=== PATIENT | female | born 1985 | race Caucasian/White ===

== ENCOUNTER 2021-05-21 21:33 | Inpatient (IN) ==
[2021-05-21] MEDS ORDERED: FAMOTIDINE 20MG/5ML IV PUSH IV STA (22:22)
[2021-05-21] MEDS ORDERED: SODIUM CHLORIDE 0.9% 1000ML 1,000 ML IV ONE (22:22)
[2021-05-21] MEDS ORDERED: PANTOprazole 40 MG TAB PO STA (22:22)
[2021-05-21] MEDS ORDERED: ALBUTEROL HFA 8 GM INHALER INH ONE (22:22)
[2021-05-21] MEDS ORDERED: ONDANSETRON INJ 2 MG/ML 2 ML VIAL IV STA (22:22)
--- NOTE | 2021-05-21 22:28 | Emergency Department Note ---
Impression & Plan Pneumonia, Hematemesis, Epigastric abdominal pain, Leukopenia, Thrombocytopenia, COVID-19 ED Provider Note NAME: ARMIN NIEVES AGE: 35 SEX: F : 1985 ARRIVES VIA: Walk-In INFORMANT: [Patient] ED PROVIDER(S): [Bipin Santamaria MD] CHIEF COMPLAINT: Dehydration HISTORY OF PRESENT ILLNESS: The patient is a 35-year-old female who presents with what she thinks is dehydration. The patient states that 6 days ago, she developed a headache. A few days ago, she developed a fever and then she lost her taste and smell. She has had no appetite and she has been quite nauseated. There has been some vomiting. The patient went to her doctor's office and tested positive for COVID-19. She is not vaccinated. The patient cannot remember the last time she urinated. She states that she thinks she is dehydrated. She has not noticed any respiratory difficulty other than a slight cough. There is no sore throat. The patient states that she has been alternating with Motrin and Tylenol and she thinks this may have upset her stomach even more. Of note, prior to my arrival in the room, the patient had an episode of vomiting and noted blood in the vomitus. REVIEW OF SYSTEMS: See HPI for pertinent positives and negatives. A total of ten systems were reviewed and were otherwise negative. PMHx/PSHx: See Below SOCIAL HISTORY: See Below. PHYSICAL EXAM: GENERAL: Patient is in no acute distress. HEENT: No acute trauma, normocephalic atraumatic, mucous membranes moist, no nasal congestion, no scleral icterus. No throat erythema or exudate. NECK: No stridor, no adenopathy, no meningismus, trachea is midline. LUNGS: Clear to auscultation bilaterally, no wheeze, no rhonchi, breath sounds equal. HEART: Without murmurs gallops or rubs, regular rate and rhythm. ABDOMEN: Soft, mildly tender in the epigastrium, bowel sounds positive, no hernias, no peritonitis. EXTREMITIES: No cyanosis or edema, full range of motion of all the joints without pain or difficulty, no signs for acute trauma. NEUROLOGIC: Oriented x 3, no acute motor or sensory deficits, no focal weakness. SKIN: No rash, no jaundice, no diaphoresis. DIFFERENTIAL DIAGNOSIS: Dehydration, pneumonia, COVID-19, ulcer, gastritis, viral illness, bowel obstruction, pneumonia, among others. EMERGENCY DEPARTMENT COURSE/PROCEDURES: MEDICAL DECISION MAKING: Patient has a lower white blood cell count, oftentimes noted with a viral infection. Her hemoglobin was normal. Platelet count was low at ninety-three. There was no kidney failure. Magnesium was low at 1.7. Lactic acid level was not elevated making sepsis less likely. There is no worrisome liver enzyme elevation. Anaplasmosis smear returned negative. Lyme disease testing is currently pending. Chest film shows a left mid lung pneumonia. As per [facility], her Covid test is positive. The patient received IV saline, 1.5 L. She was given IV Zofran, IV Pepcid and oral Protonix. She received IV morphine for her abdominal pain. She was given IV magnesium for the lower magnesium value. She was given albuterol via MDI. She received a dose of IV ceftriaxone. The ceftriaxone was for the pneumonia findings. The patient presents with a positive Covid test as an outpatient. She has a low white blood cell count, a low platelet count. She had a bout of hematemesis here at our hospital prior to my arrival in the room. Her magnesium is low. She has abdominal pain/cramping. She is dehydrated. The patient is in need of a hospital stay for further work-up. I spoke with her and case management director. The on-call hospitalist was consulted. Past Med/Surg History Medical History (Updated 05/22/21 @ 01:13 by Bipin Santamaria MD) No pertinent past medical history Surgical History No pertinent past surgical history Family History Grandmother Myocardial infarction Social History Smoking Status: Never smoker Feels Safe at Home: Yes Allergies Allergies Allergy/AdvReac Type Severity Reaction Status Date / Time No Known Allergies Allergy Unknown Verified 05/21/21 23:40 Home Meds Home Medications Medication Instructions Recorded Confirmed No Known Home Medications 03/09/21 05/21/21 Results & Data (ED) Vital Signs Vital Signs - 24 hr 05/21/21 21:41 Temperature 37 C Temperature Source Temporal Artery Scan Pulse Rate 76 Respiratory Rate 20 Blood Pressure 123/77 Blood Pressure Mean 92 Pulse Oximetry 99 Oxygen Delivery Method Room Air Sepsis Recent Fever Within 48 Hours No Sepsis New/Unexplained Change in Mental Status N/A Sepsis Action Taken by Nursing No Action Required Home Medications Current Medication List: was personally reviewed by me Laboratory Data Attestation: I reviewed the patient's lab results. Result diagrams: 05/21/21 22:36 05/21/21 22:36 Lab Results 05/21/21 05/21/21 05/21/21 Range/Units 22:36 22:36 23:57 WBC 1.79 L (4.8-10.8) K/uL RBC 4.26 (4.2-5.4) M/uL Hgb 12.3 (12.0-16.0) g/dL Hct 36.4 L (37-47) % MCV 85.4 (80-100) fL MCH 28.9 (25-34) pg MCHC 33.8 (32-36) g/dL RDW Std Deviation 37.6 (36.4-46.3) fL RDW Coeff of Oziel 12.1 (11.5-14.5) % Plt Count 93 L (130-400) K/uL MPV 11.2 H (7.4-10.4) fL Immature Gran % (Auto) 0.6 % Neut % (Auto) 74.8 % Lymph % (Auto) 19.0 % [place] % (Auto) 5.6 % Eos % (Auto) 0.0 % Baso % (Auto) 0.0 % Neut # (Auto) 1.34 L (1.4-6.5) K/uL Lymph # (Auto) 0.34 L (1.2-3.4) K/uL [place] # (Auto) 0.10 L (0.11-0.59) K/uL Eos # (Auto) 0.00 (0-0.5) K/uL Baso # (Auto) 0.00 (0-0.2) K/uL Immature Gran # (Auto) 0.01 (0.00-0.02) K/uL Platelet Estimate Decreased L (Normal) RBC Morphology Unremarkable Sodium 139 (136-145) mmol/L Potassium 3.5 (3.5-5.1) mmol/L Chloride 107 (98-107) mmol/L Carbon Dioxide 29 (21-32) mmol/L Anion Gap 3.0 (3-11) BUN 16 (7-18) mg/dl Creatinine 0.69 (0.6-1.2) mg/dl Est Cr Clr Drug Dosing 114.5 ml/min Est GFR ( Amer) 128.9 ml/min Est GFR (Non-Af Amer) 111.2 ml/min BUN/Creatinine Ratio 22.9 H (10-20) Glucose 108 H (70-99) mg/dl Lactate 1.0 (0.4-2.0) mmol/L Calcium 8.1 L (8.5-10.1) mg/dl Magnesium 1.7 L (1.8-2.4) mg/dl Total Bilirubin 0.4 (0.2-1) mg/dl Direct Bilirubin 0.1 (0-0.2) mg/dl AST 30 (15-37) U/L ALT 21 (12-78) U/L Alkaline Phosphatase 30 L (45-117) U/L Total Protein 6.1 L (6.4-8.2) gm/dl Albumin 3.2 L (3.4-5.0) gm/dl Anaplasma Smear See Comment COVID-19 Eval Order 05/22/21 Range/Units 00:46 WBC (4.8-10.8) K/uL RBC (4.2-5.4) M/uL Hgb (12.0-16.0) g/dL Hct (37-47) % MCV (80-100) fL MCH (25-34) pg MCHC (32-36) g/dL RDW Std Deviation (36.4-46.3) fL RDW Coeff of Oziel (11.5-14.5) % Plt Count (130-400) K/uL MPV (7.4-10.4) fL Immature Gran % (Auto) % Neut % (Auto) % Lymph % (Auto) % [place] % (Auto) % Eos % (Auto) % Baso % (Auto) % Neut # (Auto) (1.4-6.5) K/uL Lymph # (Auto) (1.2-3.4) K/uL [place] # (Auto) (0.11-0.59) K/uL Eos # (Auto) (0-0.5) K/uL Baso # (Auto) (0-0.2) K/uL Immature Gran # (Auto) (0.00-0.02) K/uL Platelet Estimate (Normal) RBC Morphology Sodium (136-145) mmol/L Potassium (3.5-5.1) mmol/L Chloride (98-107) mmol/L Carbon Dioxide (21-32) mmol/L Anion Gap (3-11) BUN (7-18) mg/dl Creatinine (0.6-1.2) mg/dl Est Cr Clr Drug Dosing ml/min Est GFR ( Amer) ml/min Est GFR (Non-Af Amer) ml/min BUN/Creatinine Ratio (10-20) Glucose (70-99) mg/dl Lactate (0.4-2.0) mmol/L Calcium (8.5-10.1) mg/dl Magnesium (1.8-2.4) mg/dl Total Bilirubin (0.2-1) mg/dl Direct Bilirubin (0-0.2) mg/dl AST (15-37) U/L ALT (12-78) U/L Alkaline Phosphatase (45-117) U/L Total Protein (6.4-8.2) gm/dl Albumin (3.4-5.0) gm/dl Anaplasma Smear COVID-19 Eval Order Covid19 at [facility] Administered Medications Magnesium Sulfate/Dextrose (Magnesium Sulfate / D5w) 1 gm in 100 mls @ 100 mls/hr IV NOW STA Stop: 05/22/21 01:13 Last Admin: 05/22/21 00:25 Dose: 100 mls/hr Documented by: [id number] Discontinued Medications Albuterol (Albuterol Hfa 8 Gm Inhaler) 2 puffs INH NOW ONE Stop: 05/21/21 22:23 Last Admin: 05/21/21 22:38 Dose: 2 puffs Documented by: [id number] Famotidine (Famotidine 20mg/5ml Iv Push) 20 mg IV ONE STA Stop: 05/21/21 22:23 Last Admin: 05/21/21 22:38 Dose: 20 mg Documented by: [id number] Sodium Chloride (Nss 1000ml) 1,000 mls @ 999 mls/hr IV .Q1H1M ONE Stop: 05/21/21 23:22 Last Infusion: 05/22/21 00:01 Dose: 0 mls/hr Documented by: [id number] Admin: 05/21/21 22:38 Dose: 999 mls/hr Documented by: [id number] Ceftriaxone Sodium (Rocephin) 1,000 mg in 50 mls @ 100 mls/hr IV NOW STA Stop: 05/22/21 00:05 Last Admin: 05/22/21 00:25 Dose: 100 mls/hr Documented by: [id number] Sodium Chloride (Nss 1000ml) 500 mls @ 999 mls/hr IV .Q31M ONE Stop: 05/22/21 00:17 Last Admin: 05/22/21 00:26 Dose: 999 mls/hr Documented by: [id number] Morphine Sulfate (Morphine Sulfate 4 Mg/Ml 1 Ml Carp\Vial) 4 mg IV NOW STA Stop: 05/22/21 00:13 Last Admin: 05/22/21 00:25 Dose: 4 mg Documented by: [id number] Ondansetron HCl (Ondansetron Inj 2 Mg/Ml 2 Ml Vial) 4 mg IV NOW STA Stop: 05/21/21 22:23 Last Admin: 05/21/21 22:38 Dose: 4 mg Documented by: [id number] Pantoprazole Sodium (Pantoprazole 40 Mg Tab) 40 mg PO NOW STA Stop: 05/21/21 22:23 Last Admin: 05/21/21 22:38 Dose: 40 mg Documented by: [id number] Imaging Data Attestation: I personally reviewed and interpreted this imaging study as follows: My Impression: Chest x-ray: There is a mid left lung pneumonia. There is no pneumothorax or CHF. Discharge Plan Visit Data Chief Complaint: Dehydration Stated Complaint: COVID POSITIVE, VOMITING DEHYDRATED ED Provider: Bipin Santamaria Discharge Problem: Pneumonia, Hematemesis, Epigastric abdominal pain, Leukopenia, Th rombocytopenia, COVID-19 Patient Disposition: Admitted As Inpatient Condition: Fair Forms Stand Alone Forms: My [facility] Prescriptions Prescriptions: No Action No Known Home Medications RF: 0 Referrals Referrals: PCP,NO [Primary Care Provider] -
[2021-05-21 22:57] LABS: Hematocrit (blood only) 36.4 % (37-47); Hemoglobin 12.3 g/dL (12.0-16.0); Mean Corpuscular Hemoglobin 28.9 pg (25-34); Mean Corpuscular Hgb Conc 33.8 g/dL (32-36); Mean Corpuscular Volume 85.4 fL (80-100); RDW Coefficient of Variation 12.1 % (11.5-14.5); RDW Standard Deviation 37.6 fL (36.4-46.3); Red Blood Count 4.26 M/uL (4.2-5.4); White Blood Count 1.79 K/uL (4.8-10.8)
[2021-05-21 23:16] LABS: BUN Creatinine Ratio 22.9 (10-20); Calcium 8.1 mg/dl (8.5-10.1); Creatinine Clr Calc Pharmacy 114.5 ml/min; Est GFR (African American) 128.9 ml/min; Est GFR (Non-African American) 111.2 ml/min; Potassium 3.5 mmol/L (3.5-5.1)
[2021-05-21 23:20] LABS: Mean Platelet Volume 11.2 fL (7.4-10.4); Platelet Count 93 K/uL (130-400)
[2021-05-21 23:21] LABS: Immature Granulocytes # (auto) 0.01 K/uL (0.00-0.02); Immature Granulocytes % (auto) 0.6 %; Lymphocytes # (auto) 0.34 K/uL (1.2-3.4); Monocytes % (auto) 5.6 %; Neutrophils # (auto) 1.34 K/uL (1.4-6.5); Neutrophils % (auto) 74.8 %; Platelet Estimate Decreased (Normal); RBC Morphology Unremarkable
[2021-05-21] MEDS ORDERED: cefTRIAXone SODIUM 1,000 MG/50 ML BAG IV STA (23:36)
[2021-05-21] MEDS ORDERED: SODIUM CHLORIDE 0.9% 1000ML 500 ML IV ONE (23:47)
[2021-05-22 00:08] LABS: Magnesium 1.7 mg/dl (1.8-2.4)
[2021-05-22 00:11] LABS: Albumin Level 3.2 gm/dl (3.4-5.0); Bilirubin Direct 0.1 mg/dl (0-0.2); Bilirubin,Total 0.4 mg/dl (0.2-1); Total Protein 6.1 gm/dl (6.4-8.2)
[2021-05-22] MEDS ORDERED: MoRPHine SULFATE 4 MG/ML 1 ML CARP\\VIAL IV STA (00:12)
[2021-05-22] MEDS ORDERED: MAGNESIUM SULFATE / D5W 1 GM/100 ML BAG IV STA (00:14)
[2021-05-22 01:15] LABS: Lyme Ab IgG w/WB Rflx Negative (Negative); Lyme Ab IgM w/WB Rflx Negative (Negative)
[2021-05-22 01:27] LABS: Thyroid Stimulating Hormone 0.998 uIu/ml (0.300-4.500)
--- NOTE | 2021-05-22 01:42 | History & Physical Report ---
Date of Service May 22, 2021 Assessment & Plan (1) Pneumonia due to COVID-19 virus: Plan: Atypical pneumonia on initial read UGI B Differentials include MW T, NSAID gastritis Patient currently hemodynamically stable. New onset thrombocytopenia, leukopenia secondary to viral illness GMF Doxycycline for atypical pneumonia IV PPI Serial H&H, transfuse PRBC if hemoglobin less than 7 and or for symptomatic anemia GI consult if with progressive GI bleed Peripheral blood smear for thrombocytopenia and leukopenia DVT prophylaxis. SCDs Re: Thrombocytopenia Full code Text document was generated using [employer] voice recognition software. It may contain grammatical or spelling errors. Kindly contact undersigned for clarification of any documentation item in question. History of Present Illness Chief Complaint: Dehydration, abdominal pain, hematemesis, COVID-19 Primary Care Provider: [facility] Practice History obtained from patient and records. No significant medical history. Last week, patient noted achy headache symptoms later followed by loss of taste and smell, fever, chills, body aches, dry cough. Not sure about COVID-19 contacts as patient had attended the [employer] with her family. Patient seen at PCPs office 2 days ago. COVID-19 test was positive. Patient has not received the COVID-19 vaccine. Patient advised to isolate and drink plenty of fluids. Patient alternating Tylenol and NSAIDs for body aches. Patient started feeling worse yesterday morning. Persistent headache symptoms later associated with achy abdominal pain, nausea, hematemesis. Possible diarrhea as per patient. Poor appetite. Patient feels dehydrated. No chest pain, no S OB. Persistent dry cough symptoms. Patient consulted ER for evaluation. Ceftriaxone and Protonix administered at the ER. 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 Allergies Allergy/AdvReac Type Severity Reaction Status Date / Time No Known Allergies Allergy Unknown Verified 05/21/21 23:40 Home Medications Medication Instructions Recorded Confirmed Type No Known Home Medications 03/09/21 05/21/21 History Past Med/Surg History Medical History (Updated 05/22/21 @ 09:00 by Olegario Meeks MD) No pertinent past medical history Surgical History No pertinent past surgical history Family History Grandmother Myocardial infarction Social History Smoking Status: Never smoker Hx Alcohol Use: No Hx Substance Use: No Preferred Language: Albanian Communication Ability: Effective Beliefs That Will Affect Care: None Current Living Situation: Spouse Feels Safe at Home: Yes Assistive Devices: None Review of Systems Review of Systems: As per HPI, all 10 systems reviewed, all other ROS negative Physical Exam Physical Exam: GENERAL: uncomfortable, no respiratory distress SKIN: Normal color, warm HEENT: [place] palpebral conjunctivae, no ptosis, dry buccal mucosa NECK : Supple, no tenderness CHEST : Crackles over left lung, no tenderness HEART : RRR, no obvious murmurs ABDOMEN: Some distention, epigastric tenderness EXTREMITIES : No LE swelling/tenderness, no other conspicuous deformities noted NEUROLOGIC : Coherent, no facial asymmetry, no other gross focality Results & Data Results & Data ([facility]) Vital Signs (Past 12 Hours) Vital Signs Temp Pulse Resp BP Pulse Ox 05/21/21 21:41 37 C 76 20 123/77 99 Laboratory Results Laboratory Results WBC 1.79 K/uL (4.8-10.8) L 05/21/21 22:36 RBC 4.26 M/uL (4.2-5.4) 05/21/21 22:36 Hgb 12.3 g/dL (12.0-16.0) 05/21/21 22:36 Hct 36.4 % (37-47) L 05/21/21 22:36 MCV 85.4 fL (80-100) 05/21/21 22:36 MCH 28.9 pg (25-34) 05/21/21 22:36 MCHC 33.8 g/dL (32-36) 05/21/21 22:36 RDW Std Deviation 37.6 fL (36.4-46.3) 05/21/21 22:36 RDW Coeff of Oziel 12.1 % (11.5-14.5) 05/21/21 22:36 Plt Count 93 K/uL (130-400) L 05/21/21 22:36 MPV 11.2 fL (7.4-10.4) H 05/21/21 22:36 Immature Gran % (Auto) 0.6 % 05/21/21 22:36 Neut % (Auto) 74.8 % 05/21/21 22:36 Lymph % (Auto) 19.0 % 05/21/21 22:36 Carter % (Auto) 5.6 % 05/21/21 22:36 Eos % (Auto) 0.0 % 05/21/21 22:36 Baso % (Auto) 0.0 % 05/21/21 22:36 Neut # (Auto) 1.34 K/uL (1.4-6.5) L 05/21/21 22:36 Lymph # (Auto) 0.34 K/uL (1.2-3.4) L 05/21/21 22:36 Carter # (Auto) 0.10 K/uL (0.11-0.59) L 05/21/21 22:36 Eos # (Auto) 0.00 K/uL (0-0.5) 05/21/21 22:36 Baso # (Auto) 0.00 K/uL (0-0.2) 05/21/21 22:36 Immature Gran # (Auto) 0.01 K/uL (0.00-0.02) 05/21/21 22:36 Platelet Estimate Decreased (Normal) L 05/21/21 22:36 RBC Morphology Unremarkable 05/21/21 22:36 Sodium 139 mmol/L (136-145) 05/21/21 22:36 Potassium 3.5 mmol/L (3.5-5.1) 05/21/21 22:36 Chloride 107 mmol/L (98-107) 05/21/21 22:36 Carbon Dioxide 29 mmol/L (21-32) 05/21/21 22:36 Anion Gap 3.0 (3-11) 05/21/21 22:36 BUN 16 mg/dl (7-18) 05/21/21 22:36 Creatinine 0.69 mg/dl (0.6-1.2) 05/21/21 22:36 Est Cr Clr Drug Dosing 114.5 ml/min 05/21/21 22:36 Est GFR ( Amer) 128.9 ml/min 05/21/21 22:36 Est GFR (Non-Af Amer) 111.2 ml/min 05/21/21 22:36 BUN/Creatinine Ratio 22.9 (10-20) H 05/21/21 22:36 Glucose 108 mg/dl (70-99) H 05/21/21 22:36 Lactate 1.0 mmol/L (0.4-2.0) 05/21/21 23:57 Calcium 8.1 mg/dl (8.5-10.1) L 05/21/21 22:36 Magnesium 1.7 mg/dl (1.8-2.4) L 05/21/21 22:36 Total Bilirubin 0.4 mg/dl (0.2-1) 05/21/21 22:36 Direct Bilirubin 0.1 mg/dl (0-0.2) 05/21/21 22:36 AST 30 U/L (15-37) 05/21/21 22:36 ALT 21 U/L (12-78) 05/21/21 22:36 Alkaline Phosphatase 30 U/L (45-117) L 05/21/21 22:36 Total Protein 6.1 gm/dl (6.4-8.2) L 05/21/21 22:36 Albumin 3.2 gm/dl (3.4-5.0) L 05/21/21 22:36 TSH 0.998 uIu/ml (0.300-4.500) 05/21/21 22:36 Anaplasma Smear See Comment 05/21/21 22:36 Lyme Disease IgG Ab Negative (Negative) 05/22/21 00:12 Lyme Disease IgM Ab Negative (Negative) 05/22/21 00:12 COVID-19 Eval Order Covid19 at [facility] 05/22/21 00:[address] head initial read: No ICH, mass effect or edema. No evidence of acute cortical stroke. Visualized sinuses and mastoid air cells are clear. CT chest initial read: Accounting for limitationswith respiratoryartifact, there is no evidence for pulmonaryembolism. Patchyconfluent opacities in the left upper lobe with air bronchograms. Less prominent nodular changes in the bilateral lower lobes are noted, left greater than right. Primaryconsideration is multifocal pneumonia. The appearance is not typical for Covid viral pneumonia, however this does not exclude this entity. The morphologyof consolidation simplyraises the possibilityof alternate entities such as communityacquired pneumonia. No pleural effusion or pneumothorax. The thoracic aorta and cardiac chambers are unremarkable. No pericardial effusion. No significant mediastinal or hilar adenopathy. No acute osseous or significant overlying soft tissue abnormality CT abdomen pelvis initial read: Small hiatal hernia. No bowel obstruction or focal bowel mucosal abnormalityidentified, accounting for areas of colonic decompression. No pneumoperitoneum. Incidental normal caliber appendix noted medial to the cecumin the right pelvis. Periportal lucency/edema is noted and is presumed related to hypervolemiawith fold distention of the IVC. Acute hepatitis or cholangitis is considered less likely; please correlate with laboratoryfindings. The liver, gallbladder, pancreas, spleen, adrenal glands and kidneys otherwise demonstrate no significant abnormality. Incidental nonobstructive subcentimeter nephrolithiasis noted bilaterally. Bladder is mildlydistended without significant wall abnormalities or calcifications. Mild free fluid in the dependent pelvis is nonspecific and maybe physiologic. No loculation. No acute osseous or significant overlying soft tissue abnormality.
[2021-05-22] MEDS ORDERED: LORazepam 0.25 MG/0.5 ML VIAL IV PRN (02:08)
[2021-05-22] MEDS ORDERED: OPTIRAY 320 100ml IV ONE (02:57)
[2021-05-22] MEDS ORDERED: DOXYCYCLINE HYCLATE 100 MG in DEXTROSE 5% 100 ML IV STA (03:14)
[2021-05-22] MEDS ORDERED: LEVALBUTEROL TARTRATE 15 GM HFA.AER.AD INH PRN (04:46)
[2021-05-22] MEDS ORDERED: POTASSIUM CHLORIDE 40 MEQ in SODIUM CHLORIDE 0.9% 1000ML 1,000 ML IV ONE (05:00)
[2021-05-22] MEDS: ACETAMINOPHEN 325 MG TAB PO PRN ×3 (05:27→18:09)
[2021-05-22] MEDS: PROMETHAZINE HCL 12.5 MG in SODIUM CHLORIDE 0.9% 50 ML IV PRN ×2 (05:27→19:44)
[2021-05-22] MEDS: guaiFENesin 600 MG TABCR PO SCH ×2 (05:28→18:09)
[2021-05-22 06:21] LABS: Hematocrit (blood only) 36.9 % (37-47); Hemoglobin 12.5 g/dL (12.0-16.0); Mean Corpuscular Hemoglobin 29.2 pg (25-34); Mean Corpuscular Hgb Conc 33.9 g/dL (32-36); Mean Corpuscular Volume 86.2 fL (80-100); RDW Coefficient of Variation 12.2 % (11.5-14.5); RDW Standard Deviation 39.3 fL (36.4-46.3); Red Blood Count 4.28 M/uL (4.2-5.4); White Blood Count 1.37 K/uL (4.8-10.8)
[2021-05-22 06:27] LABS: Mean Platelet Volume 10.9 fL (7.4-10.4); Platelet Count 81 K/uL (130-400)
--- NOTE | 2021-05-22 06:39 | CT Scan Report ---
CT OF THE CHEST WITH IV CONTRAST CLINICAL HISTORY: Abnormal chest radiograph. Cough. Covid. COMPARISON STUDY: Chest radiograph March 09, 2021. Chest radiograph May 21, 2021. TECHNIQUE: Following IV administration of 96 mL of Optiray, helical axial images of the chest were o btained. Sagittal and coronal reconstructions were viewed as well as maximal intensity projections o n an independent 3-D workstation. Automated exposure control was utilized for the study. A dose low ering technique was utilized adhering to the principles of ALARA. FINDINGS: No central pulmonary embolus is identified. The remainder of the pulmonary arteries are holman boptimally assessed given suboptimal opacification as this study was not performed as a pulmonary emb olus protocol. There is dense left upper lobe consolidation with air bronchograms. There are addition al scattered alveolar opacities throughout the lungs. Central airways are patent. There is no cavitat ion. There is no thoracic lymphadenopathy. No pneumothorax or pleural effusion is noted. Abdomen and pelvis will be reported separately. Splenomegaly is noted. IMPRESSION: 1. Dense consolidation within the left upper lobe with scattered additional airspace opacities throug hout the lungs. The findings are consistent with multifocal pneumonia. The left upper lobe consolidat ion is more suggestive of bacterial pneumonia however viral pneumonia remains within the differential . 2. Splenomegaly. ACT 112: Negative or not required by law. Electronically signed by: Rick Siddiqui M.D. 05/22/2021 6:38 AM
[2021-05-22 06:52] LABS: Giant Platelets 1+; Immature Granulocytes # (auto) 0.01 K/uL (0.00-0.02); Immature Granulocytes % (auto) 0.7 %; Lymphocytes % (auto) 21.9 %; Monocytes # (auto) 0.05 K/uL (0.11-0.59); Monocytes % (auto) 3.6 %; Neutrophils # (auto) 1.01 K/uL (1.4-6.5); Neutrophils % (auto) 73.8 %
[2021-05-22 07:00] LABS: BUN Creatinine Ratio 16.9 (10-20); Calcium 7.4 mg/dl (8.5-10.1); Creatinine Clr Calc Pharmacy 128.3 ml/min; Est GFR (African American) 133.5 ml/min; Est GFR (Non-African American) 115.2 ml/min; Potassium 3.7 mmol/L (3.5-5.1)
--- NOTE | 2021-05-22 08:38 | XRay Report ---
XR chest 1V portable CLINICAL HISTORY: cough COMPARISON STUDY: March 09, 2021 FINDINGS: No pneumothorax. No pleural effusion. Throughout development of airspace opacity at the left mid lung region could represent pneumonia. Cardiomediastinal silhouette is within normal limits in size. No significant pulmonary vascular congestion.. Osseous structures: unremarkable IMPRESSION: 1. Interval development of opacity at the left mid lung region, likely represent pneumonia. Follow-u p evaluation in 4-6 weeks with PA and lateral chest radiograph is recommended to document resolution. ACT 112: Negative or not required by law. The above report was generated using voice recognition software. It may contain grammatical, syntax o r spelling errors. Electronically signed by: Philomena Mcdermott DO 05/22/2021 8:37 AM
[2021-05-22] MEDS: PANTOprazole 40 MG in SYRINGE 0 ML IV SCH ×2 (09:19→21:34)
--- NOTE | 2021-05-22 10:22 | CT Scan Report ---
CT OF THE HEAD WITHOUT CONTRAST CLINICAL HISTORY: Headache, low platelets COMPARISON STUDY: No previous studies for comparison. TECHNIQUE: Helical axial images of the head were obtained without IV contrast. Automated exposure con trol was utilized for the study. A dose lowering technique was utilized adhering to the principles o f ALARA. FINDINGS: No acute intracranial hemorrhage, midline shift or mass effect is present. The ventricular system is unremarkable. The basal cisterns are patent. No extra-axial collections are present. There are no findings to suggest acute dural sinus thrombosis or acute territorial infarct. No significant calvarial abnormalities are present. Visualized portions of the sinuses and mastoid air cells are frandy ar. IMPRESSION: No acute intracranial findings. ACT 112: Negative or not required by law. Electronically signed by: Rick Siddiqui M.D. 05/22/2021 10:21 AM
--- NOTE | 2021-05-22 10:47 | CT Scan Report ---
CT abd pelvis IV con only CLINICAL HISTORY: abd pain, gi bleed COMPARISON STUDY: None. TECHNIQUE: A dose lowering technique was utilized adhering to the principles of ALARA. CT DOSE: 1457.50 mGy.cm FINDINGS: Lower chest: Patchy nodular centrilobular airspace opacities with surrounding groundglass attenuation is seen within partially visualized left lower lobe and lingula most likely representing infectious/ inflammatory process.. Liver: The contrast-enhanced liver is normal in size, contour, and attenuation. Mild prominence of in trahepatic biliary ducts. Common bile duct is mildly dilated measuring up to 9 mm there is no intralu bartolo calculi are seen however there is abrupt tapering of the common bile duct within its distal asp ect (9/163). Gallbladder: Is distended with fluid. No intraluminal calculi are seen to suggest cholelithiasis. The re is mild thickening of the gallbladder wall. Spleen: Normal in size and attenuation. Pancreas: Unremarkable. Adrenal glands: Unremarkable. Kidneys: There is symmetric renal cortical enhancement. The kidneys are normal in size without hydron ephrosis.Nonobstructive calculi are seen within the right and left renal pelvises measuring up to 5 m m in size. Pelvic viscera: Urinary bladder is adequately filled with urine. Uterus is normal. Cystic appearance of the right and left adnexa, could represent physiologic follicles. Corpus luteum cyst is seen on th e left. Small amount of free fluid is seen within lower pelvic region which could be normal findings in premenopausal female. Bowel: Small hiatal hernia is seen. Bowel loops are nondilated. Appendix shows normal morphology and gas filled. Peritoneum: No free intra-abdominal gas is seen. Vasculature: The abdominal aorta is normal in course and caliber. Adenopathy: None. Skeletal structures: Minimal degenerative changes of the spine. IMPRESSION: 1. Inflammatory/infectious process involving lingula and left lower lobe, likely pneumonia. Follow-u p further details please see report of CT of the chest performed at the same time.. 2. Mild prominence of the intrahepatic biliary ducts, mild dilatation of the common bile duct and po ssible abrupt tapering of the distal portion of the common bile duct. Questionable thickening of the gallbladder wall. No definite inflammatory changes are seen however cholecystitis cannot be completel y ruled out. Further evaluation with right upper quadrant ultrasound is suggested. 3. Bilateral nonobstructive nephrolithiasis. 4. Small hiatal hernia. 5. Small amount of free fluid within pelvic region which could be normal findings in premenopausal f emale. ACT 112: Negative or not required by law. The above report was generated using voice recognition software. It may contain grammatical, syntax o r spelling errors. Electronically signed by: Philomena Mcdermott DO 05/22/2021 10:45 AM
[2021-05-22 11:59] LABS: Hematocrit (blood only) 36.9 % (37-47); Hemoglobin 12.4 g/dL (12.0-16.0)
[2021-05-22] MEDS: ondansetron HCL 6 MG in DEXTROSE 5% 50 ML IV PRN (14:18)
--- NOTE | 2021-05-22 16:06 | Hospitalist Progress Note ---
Date of Service May 22, 2021 Assessment & Plan (1) Pneumonia due to COVID-19 virus: Plan: Chest x-ray and CT of the chest with contrast noted dense consolidation in the left upper lobe with additional airspace opacities throughout the lung consistent with multifocal pneumonia. Patient got ceftriaxone and doxycycline ER. Currently on doxycycline for atypical pneumonia Continue airborne precautions. Continue supportive care with guaifenesin, antiemetics Monitor oxygen levels. Currently on room air Incentive spirometry and flutter. Patient also has leukopenia and thrombocytopenia. This may be related to active infection. Tickborne work-up including Lyme testing and anaplasmosis smear negative. Monitor blood counts Peripheral smear. There is report of a hematemesis episode Will monitor Hb stable Continue IV PPI. If recurs or Hb drop, will get GI eval Admission and Anticipated Discharge Date Admission Date: May 22, 2021 Subjective 35-year-old woman who presents with fever, chills, body aches, dry cough. Found to be positive for COVID-19. Being managed for pneumonia. Patient seen and examined this morning. Reports headache, congestion, nausea, dry cough. Patient also reported chronic hearing deficits. Currently on room air Reports generalized weakness. Review of Systems Review of Systems: Other review of systems negative except as detailed above Physical Exam Constitutional: + well hydrated; no acute distress Eyes: PERRL, conjunctivae normal, anicteric sclerae ENMT: external ear and nose normal, oropharynx normal Respiratory: normal respiratory effort; no respiratory distress Auscultation: + crackles (left lung) Cardiovascular: Rate/Rhythm: regular rate and regular rhythm S1 S2 Gastrointestinal (Abdomen): normal bowel sounds, soft, nontender, no hepatosplenomegaly Musculoskeletal: no cyanosis or clubbing, extremities motor strength 5/5 Neurologic: PERRL, EOMI, accommodation nl, no face palsy, no dysarthria Psychiatric: A+Ox3, euthymic affect Results & Data Results & Data ([facility]) Vital Signs (Past 12 Hours) Vital Signs Temp Pulse Pulse Resp BP BP Pulse Ox 05/22/21 14:27 37.7 C H 75 16 115/73 92 05/22/21 12:55 83 130/70 93 05/22/21 08:25 36.6 C 74 16 110/72 94 05/22/21 05:01 38.0 C H 73 18 134/85 96 05/22/21 04:22 134/91 Laboratory Results Abnormal lab results 05/21/21 05/21/21 05/22/21 Range/Units 22:36 22:36 00:46 WBC 1.79 L (4.8-10.8) K/uL Hct 36.4 L (37-47) % Plt Count 93 L (130-400) K/uL MPV 11.2 H (7.4-10.4) fL Neut # (Auto) 1.34 L (1.4-6.5) K/uL Lymph # (Auto) 0.34 L (1.2-3.4) K/uL [place] # (Auto) 0.10 L (0.11-0.59) K/uL Platelet Estimate Decreased L (Normal) Chloride (98-107) mmol/L BUN/Creatinine Ratio 22.9 H (10-20) Glucose 108 H (70-99) mg/dl Calcium 8.1 L (8.5-10.1) mg/dl Magnesium 1.7 L (1.8-2.4) mg/dl Alkaline Phosphatase 30 L (45-117) U/L Total Protein 6.1 L (6.4-8.2) gm/dl Albumin 3.2 L (3.4-5.0) gm/dl SARS-CoV-2 (PCR) POSITIVE A* (Negative) 05/22/21 05/22/21 05/22/21 Range/Units 05:44 05:44 11:36 WBC 1.37 L (4.8-10.8) K/uL Hct 36.9 L 36.9 L (37-47) % Plt Count 81 L (130-400) K/uL MPV 10.9 H (7.4-10.4) fL Neut # (Auto) 1.01 L (1.4-6.5) K/uL Lymph # (Auto) 0.30 L (1.2-3.4) K/uL [place] # (Auto) 0.05 L (0.11-0.59) K/uL Platelet Estimate (Normal) Chloride 110 H (98-107) mmol/L BUN/Creatinine Ratio (10-20) Glucose 122 H (70-99) mg/dl Calcium 7.4 L (8.5-10.1) mg/dl Magnesium (1.8-2.4) mg/dl Alkaline Phosphatase (45-117) U/L Total Protein (6.4-8.2) gm/dl Albumin (3.4-5.0) gm/dl SARS-CoV-2 (PCR) (Negative)
[2021-05-22] MEDS: DOXYCYCLINE HYCLATE 100 MG CAP PO SCH (21:34)
[2021-05-23] MEDS: ACETAMINOPHEN 325 MG TAB PO PRN ×4 (00:12→22:12)
[2021-05-23] MEDS: ondansetron HCL 6 MG in DEXTROSE 5% 50 ML IV PRN ×4 (01:34→21:25)
[2021-05-23] MEDS: guaiFENesin 600 MG TABCR PO SCH ×2 (05:46→19:32)
--- NOTE | 2021-05-23 06:00 | Electrocardiogram Report ---
Test Reason : Blood Pressure : / mmHG Vent. Rate : 082 BPM Atrial Rate : 082 BPM P-R Int : 136 ms QRS Dur : 076 ms QT Int : 350 ms P-R-T Axes : 040 050 013 degrees QTc Int : 408 ms Normal sinus rhythm Nonspecific T wave abnormality Abnormal ECG When compared with ECG of 09-MAR-2021 16:53, Non-specific change in ST segment in Anterior leads Inverted T waves have replaced nonspecific T wave abnormality in Inferior leads Nonspecific T wave abnormality now evident in Anterolateral leads Confirmed by Artur Rodriguez ([id number]) on 05/23/2021 6:00:09 AM Referred By: REFERRED SELF Confirmed By:Artur Rodriguez
[2021-05-23 06:26] LABS: Hematocrit (blood only) 35.4 % (37-47); Hemoglobin 11.8 g/dL (12.0-16.0); Mean Corpuscular Hemoglobin 28.6 pg (25-34); Mean Corpuscular Hgb Conc 33.3 g/dL (32-36); Mean Corpuscular Volume 85.7 fL (80-100); RDW Coefficient of Variation 12.2 % (11.5-14.5); RDW Standard Deviation 38.6 fL (36.4-46.3); Red Blood Count 4.13 M/uL (4.2-5.4); White Blood Count 2.03 K/uL (4.8-10.8)
[2021-05-23 06:28] LABS: Mean Platelet Volume 10.4 fL (7.4-10.4); Platelet Count 98 K/uL (130-400)
[2021-05-23 06:58] LABS: BUN Creatinine Ratio 11.1 (10-20); C Reactive Protein 3.89 mg/dl (0-0.29); Calcium 7.8 mg/dl (8.5-10.1); Creatinine Clr Calc Pharmacy 108.9 ml/min; Est GFR (African American) 121.9 ml/min; Est GFR (Non-African American) 105.2 ml/min; Magnesium 1.6 mg/dl (1.8-2.4); Potassium 3.6 mmol/L (3.5-5.1)
[2021-05-23 07:24] LABS: D Dimer 750 ug/L FEU (0-500)
[2021-05-23] MEDS: PANTOprazole 40 MG in SYRINGE 0 ML IV SCH ×2 (08:11→20:13)
[2021-05-23] MEDS: DOXYCYCLINE HYCLATE 100 MG CAP PO SCH ×2 (08:12→20:13)
[2021-05-23] MEDS ORDERED: MAGNESIUM SULFATE / D5W 1 GM/100 ML BAG IV ONE (08:30)
[2021-05-23] MEDS: PROMETHAZINE HCL 12.5 MG in SODIUM CHLORIDE 0.9% 50 ML IV PRN (12:50)
[2021-05-23] MEDS ORDERED: ENOXAPARIN INJ 40 MG/0.4 ML SYR SQ ONE (13:19)
[2021-05-23] MEDS ORDERED: SODIUM CHLORIDE 0.9% 500 ML IV SCH (13:30)
[2021-05-23] MEDS: traMADol HCL 50 MG TABLET PO PRN (13:54)
[2021-05-23] MEDS: SODIUM CHLORIDE 0.9% 1000ML 1,000 ML IV SCH (15:08)
--- NOTE | 2021-05-23 15:44 | Hospitalist Progress Note ---
Date of Service May 23, 2021 Assessment & Plan (1) Pneumonia due to COVID-19 virus: Plan: Chest x-ray and CT of the chest with contrast noted dense consolidation in the left upper lobe with additional airspace opacities throughout the lung consistent with multifocal pneumonia. Patient got ceftriaxone and doxycycline ER. Currently on doxycycline for atypical pneumonia Continue airborne precautions. Continue supportive care with guaifenesin, antiemetics, pain meds Monitor oxygen levels. Currently on room air Incentive spirometry and flutter. Patient also has leukopenia and thrombocytopenia. This may be related to active infection. These are mildly improved today Tickborne work-up including Lyme testing and anaplasmosis smear negative. Continue to monitor blood counts There was one report of a hematemesis episode. Has not had any more since Will monitor Continue IV PPI. If recurs or significant Hb drop, will get GI eval Diet advanced. IVF at 80cc/h today due to poor oral intake and dehydration Admission and Anticipated Discharge Date Admission Date: May 22, 2021 Subjective 35-year-old woman who presents with fever, chills, body aches, dry cough. Found to be positive for COVID-19. Being managed for pneumonia. Patient seen and examined this morning. Reports headache is resolved now Still reports congestion, cough, abd pain Still has nausea. Reports multiple episodes of loose stool today Poor appetite and generalized weakness Currently on room air Review of Systems Review of Systems: Some hearing deficits Physical Exam Constitutional: + well hydrated; no acute distress Eyes: PERRL, conjunctivae normal, anicteric sclerae ENMT: Dry oral mucosa Respiratory: normal respiratory effort; no respiratory distress Auscultation: + diminished lung sounds Cardiovascular: Rate/Rhythm: regular rate and regular rhythm S1 S2 Gastrointestinal (Abdomen): normal bowel sounds, soft, nontender, no hepatosplenomegaly Musculoskeletal: no cyanosis or clubbing, extremities motor strength 5/5 Neurologic: PERRL, EOMI, accommodation nl, no face palsy, no dysarthria Psychiatric: A+Ox3, euthymic affect Results & Data Results & Data ([facility]) Vital Signs (Past 12 Hours) Vital Signs Temp Pulse Resp BP BP Pulse Ox 05/23/21 15:15 39 C H 73 14 124/78 96 05/23/21 08:29 37.7 C H 05/23/21 08:23 38.2 C H 82 16 132/82 91 05/23/21 05:39 37.2 C
[2021-05-24] MEDS: SODIUM CHLORIDE 0.9% 1000ML 1,000 ML IV SCH (02:01)
[2021-05-24] MEDS: guaiFENesin 600 MG TABCR PO SCH ×2 (05:15→17:54)
[2021-05-24 07:36] LABS: Prothrombin Time 10.2 Seconds (9.0-12.0)
[2021-05-24 07:56] LABS: Albumin Level 2.6 gm/dl (3.4-5.0); BUN Creatinine Ratio 12.3 (10-20); C Reactive Protein 3.74 mg/dl (0-0.29); Calcium 7.5 mg/dl (8.5-10.1); Creatinine Clr Calc Pharmacy 107.5 ml/min; Est GFR (Non-African American) 103.5 ml/min; Magnesium 2.1 mg/dl (1.8-2.4); Potassium 3.5 mmol/L (3.5-5.1)
[2021-05-24 08:00] LABS: Albumin Globulin Ratio 0.9 (0.9-2); Bilirubin,Total 0.5 mg/dl (0.2-1); Phosphorus 2.2 mg/dl (2.5-4.9); Total Protein 5.6 gm/dl (6.4-8.2)
[2021-05-24] MEDS: PROMETHAZINE HCL 12.5 MG in SODIUM CHLORIDE 0.9% 50 ML IV PRN (08:45)
[2021-05-24] MEDS: traMADol HCL 50 MG TABLET PO PRN (08:51)
[2021-05-24] MEDS: DOXYCYCLINE HYCLATE 100 MG CAP PO SCH ×2 (08:51→20:23)
[2021-05-24] MEDS: ACETAMINOPHEN 325 MG TAB PO PRN ×2 (08:52→20:22)
[2021-05-24] MEDS: ENOXAPARIN INJ 40 MG/0.4 ML SYR SQ SCH (08:54)
[2021-05-24] MEDS: PANTOprazole 40 MG in SYRINGE 0 ML IV SCH ×2 (08:56→20:23)
[2021-05-24] MEDS: dexAMETHasone 6 MG in SYRINGE 0 ML IV SCH (10:41)
[2021-05-24] MEDS ORDERED: POTASSIUM PHOS 3 MMOL/1 ML INFUSION IV STA (11:22)
[2021-05-24] MEDS ORDERED: POTASSIUM PHOSPHATE 21 MMOL in SODIUM CHLORIDE 0.9% 500 ML IV ONE (12:00)
[2021-05-24] MEDS ORDERED: REMDESIVIR 200 MG in SODIUM CHLORIDE 0.9% 210 ML IV STA (13:13)
--- NOTE | 2021-05-24 13:14 | Hospitalist Progress Note ---
Date of Service May 24, 2021 Assessment & Plan (1) Pneumonia due to COVID-19 virus: Plan: Chest x-ray and CT of the chest with contrast noted dense consolidation in the left upper lobe with additional airspace opacities throughout the lung consistent with multifocal pneumonia. Patient got ceftriaxone and doxycycline in ER. Currently on doxycycline for atypical pneumonia Continue airborne precautions. Continue oxygen supplementation. Discussed dexamethasone and remdesivir therapy now patient is hypoxic. She is agreeable to these. Medications started Monitor LFT Continue supportive care with guaifenesin, antiemetics, pain meds Counselled on self proning Incentive spirometry and flutter. Patient also had leukopenia and thrombocytopenia. This may be related to active infection. Tickborne work-up including Lyme testing and anaplasmosis smear negative. Continue to monitor blood counts There was one report of a hematemesis episode. Has not had any more since Will monitor Continue IV PPI. If recurs or significant Hb drop, will get GI eval Low potassium today. Replete and monitor Lovenox sq for DVT ppx Admission and Anticipated Discharge Date Admission Date: May 22, 2021 Subjective 35-year-old woman who presents with fever, chills, body aches, dry cough. Found to be positive for COVID-19. Being managed for pneumonia. Patient seen and examined this morning. Reports abd pain mostly central abdomen and RLQ, was moderate earlier but currently mild, nonradiating No nausea at this time No headache or dizziness Still has cough, generalized weakness and poor appetite Reported some loose stool overnight Was noted by RN to have ox sats of 89-90 on room air this AM and was put on nasal oxygen at 2l Review of Systems Review of Systems: Other ROS negative except as above Physical Exam Constitutional: + well hydrated; no acute distress Eyes: PERRL, conjunctivae normal, anicteric sclerae ENMT: external ear and nose normal, oropharynx normal Respiratory: normal respiratory effort; no respiratory distress Auscultation: + diminished lung sounds S1 S2 Cardiovascular: Rate/Rhythm: regular rate and regular rhythm Gastrointestinal (Abdomen): normal bowel sounds, soft, nontender, no hepatosplenomegaly Musculoskeletal: no cyanosis or clubbing, extremities motor strength 5/5 Neurologic: PERRL, EOMI, accommodation nl, no face palsy, no dysarthria Psychiatric: A+Ox3, euthymic affect Results & Data Results & Data ([facility]) Vital Signs (Past 12 Hours) Vital Signs Temp Pulse Resp BP Pulse Ox 05/24/21 12:56 37.7 C H 90 05/24/21 12:00 37.1 C 64 24 107/68 94 05/24/21 11:15 62 95 05/24/21 10:40 37.7 C H 65 28 H 94 05/24/21 09:07 22 95 05/24/21 08:41 38.7 C H 89 24 138/82 90 Laboratory Results Abnormal lab results 05/24/21 Range/Units 07:13 Glucose 100 H (70-99) mg/dl Calcium 7.5 L (8.5-10.1) mg/dl Phosphorus 2.2 L (2.5-4.9) mg/dl AST 90 H (15-37) U/L Alkaline Phosphatase 25 L (45-117) U/L C-Reactive Protein 3.74 H (0-0.29) mg/dl Total Protein 5.6 L (6.4-8.2) gm/dl Albumin 2.6 L (3.4-5.0) gm/dl
--- NOTE | 2021-05-24 14:03 | XRay Report ---
KUB CLINICAL HISTORY: Persistent abdominal pain. COMPARISON STUDY: CT of the abdomen and pelvis May 22, 2021. FINDINGS: Airspace opacities, greater within the left lung, are partially imaged on this examination. Bilateral renal calculi measure up to 5 mm. There is no evidence for a bowel obstruction. Pelvic shane cifications do not reflect ureteral calculi. IMPRESSION: 1. No evidence for a bowel obstruction. 2. Bilateral nephrolithiasis. 3. Airspace opacities within lungs, greater on the left. The findings represent an infectious process . ACT 112: Negative or not required by law. Electronically signed by: Rick Siddiqui M.D. 05/24/2021 2:01 PM
[2021-05-24] MEDS: SODIUM CHLORIDE 0.9% 10ML FLUSH IV SCH (19:00)
[2021-05-24] MEDS: MELATONIN 3 MG TAB PO PRN (20:23)
[2021-05-25] MEDS: guaiFENesin 600 MG TABCR PO SCH ×2 (05:07→17:37)
[2021-05-25] MEDS: traMADol HCL 50 MG TABLET PO PRN (05:07)
[2021-05-25] MEDS ORDERED: ALBUT/IPRATROP 3MG/0.5MG NEB 3 ML VIAL NEB STA (05:32)
[2021-05-25 06:07] LABS: Hematocrit (blood only) 37.3 % (37-47); Hemoglobin 12.8 g/dL (12.0-16.0); Mean Corpuscular Hemoglobin 29.7 pg (25-34); Mean Corpuscular Hgb Conc 34.3 g/dL (32-36); Mean Corpuscular Volume 86.5 fL (80-100); Mean Platelet Volume 10.6 fL (7.4-10.4); Platelet Count 147 K/uL (130-400); RDW Coefficient of Variation 12.1 % (11.5-14.5); RDW Standard Deviation 39.1 fL (36.4-46.3); Red Blood Count 4.31 M/uL (4.2-5.4); White Blood Count 2.22 K/uL (4.8-10.8)
[2021-05-25 06:34] LABS: Albumin Level 2.3 gm/dl (3.4-5.0); BUN Creatinine Ratio 22.2 (10-20); Calcium 7.7 mg/dl (8.5-10.1); Creatinine Clr Calc Pharmacy 134.8 ml/min; Est GFR (African American) 135.7 ml/min; Est GFR (Non-African American) 117.1 ml/min; Magnesium 2.1 mg/dl (1.8-2.4)
[2021-05-25 06:38] LABS: Albumin Globulin Ratio 0.7 (0.9-2); Bilirubin,Total 0.4 mg/dl (0.2-1); C Reactive Protein 3.13 mg/dl (0-0.29); Globulin 3.1 gm/dl (2.5-4.0); Phosphorus 3.1 mg/dl (2.5-4.9); Total Protein 5.4 gm/dl (6.4-8.2)
[2021-05-25 07:24] LABS: D Dimer 770 ug/L FEU (0-500)
[2021-05-25] MEDS: dexAMETHasone 6 MG in SYRINGE 0 ML IV SCH (08:45)
[2021-05-25] MEDS: DOXYCYCLINE HYCLATE 100 MG CAP PO SCH ×2 (08:46→20:26)
[2021-05-25] MEDS: ENOXAPARIN INJ 40 MG/0.4 ML SYR SQ SCH (08:46)
[2021-05-25] MEDS: FLUTICASONE FUROATE 100MCG 14 PUFFS/INHALER INH SCH (08:47)
[2021-05-25] MEDS: PANTOprazole 40 MG in SYRINGE 0 ML IV SCH ×2 (08:47→20:26)
[2021-05-25] MEDS ORDERED: REMDESIVIR 100 MG in SODIUM CHLORIDE 0.9% 230 ML IV SCH (12:00)
--- NOTE | 2021-05-25 12:06 | Hospitalist Progress Note ---
Date of Service May 25, 2021 Assessment & Plan (1) Pneumonia due to COVID-19 virus: Plan: Chest x-ray and CT of the chest with contrast noted dense consolidation in the left upper lobe with additional airspace opacities throughout the lung consistent with multifocal pneumonia. Patient got ceftriaxone and doxycycline in ER. Currently on doxycycline for atypical pneumonia Continue airborne precautions. Taken off oxygen this AM, sats 93-94 Continue dexamethasone and remdesivir LFT were mildly elevated yesterday, still elevated today. CT abd on admission did report mild prominence of intrahepatic biliary ducts, mild CBD. Will get RUQ USS for better eval. If continue to increase, will get GI Continue supportive care with guaifenesin, antiemetics, pain meds Counselled again on self proning Incentive spirometry and flutter. Patient also had leukopenia and thrombocytopenia. This may be related to active infection. These continue to improve Tickborne work-up including Lyme testing and anaplasmosis smear negative. Continue to monitor blood counts There was one report of a hematemesis episode. Has not had any more since Will monitor Continue IV PPI. Hb stable Lovenox sq for DVT ppx Admission and Anticipated Discharge Date Admission Date: May 22, 2021 Subjective 35-year-old woman who presents with fever, chills, body aches, dry cough. Found to be positive for COVID-19. Being managed for pneumonia. Started on dexamethasone and remdesivir yesterday after becoming hypoxic Patient seen and examined this morning. Reports abd pain much improved No nausea at this time No headache or dizziness Still has cough Reports mild improved appetite and fatigue Review of Systems Review of Systems: Other ROS negative except as above Physical Exam Constitutional: + well hydrated; no acute distress Eyes: PERRL, conjunctivae normal, anicteric sclerae ENMT: external ear and nose normal, oropharynx normal Respiratory: normal respiratory effort; no respiratory distress Auscultation: + diminished lung sounds Cardiovascular: Rate/Rhythm: regular rate and regular rhythm S1 S2 Gastrointestinal (Abdomen): normal bowel sounds, soft, nontender, no hepatosplenomegaly Musculoskeletal: no cyanosis or clubbing, extremities motor strength 5/5 Neurologic: PERRL, EOMI, accommodation nl, no face palsy, no dysarthria Psychiatric: A+Ox3, euthymic affect Results & Data Results & Data ([facility]) Vital Signs (Past 12 Hours) Vital Signs Temp Pulse Resp BP BP Pulse Ox 05/25/21 07:12 37 C 57 L 18 116/75 96 05/25/21 05:50 50 L 20 96 05/25/21 05:11 49 L 24 112/73 94 Laboratory Results Abnormal lab results 05/25/21 05/25/21 05/25/21 Range/Units 05:43 05:43 05:43 WBC 2.22 L (4.8-10.8) K/uL MPV 10.6 H (7.4-10.4) fL D-Dimer 770 H* (0-500) ug/L FEU Creatinine 0.59 L (0.6-1.2) mg/dl BUN/Creatinine Ratio 22.2 H (10-20) Glucose 114 H (70-99) mg/dl Calcium 7.7 L (8.5-10.1) mg/dl AST 193 H (15-37) U/L ALT 110 H (12-78) U/L Alkaline Phosphatase 27 L (45-117) U/L C-Reactive Protein 3.13 H (0-0.29) mg/dl Total Protein 5.4 L (6.4-8.2) gm/dl Albumin 2.3 L (3.4-5.0) gm/dl Albumin/Globulin Ratio 0.7 L (0.9-2)
[2021-05-25] MEDS: SODIUM CHLORIDE 0.9% 10ML FLUSH IV SCH (14:17)
--- NOTE | 2021-05-25 16:02 | Ultrasound Report ---
US liver CLINICAL HISTORY: 35 years-old Female presenting with Better assess GB/biliary tract findings on CT. LFT. TECHNIQUE: Real-time grayscale ultrasound imaging of the upper abdomen was performed for a focused ev aluation at the site of clinical concern. COMPARISON: None. FINDINGS: Visualized portion of the pancreas shows no evidence of focal lesions. Liver is normal in size shows normal echogenicity and echotexture of its parenchyma without evidence of focal lesions or intrahepatic biliary dilatation. Gallbladder is fluid-filled without evidence of intraluminal calculi. Gallbladder wall is measuring 0 .3 cm. No pericholecystic edema is seen. Common bile duct is nondilated measuring 0.5 cm in diameter. Evaluation of the right kidney shows no evidence of hydronephrosis. Incidental findings of small right pleural effusion. IMPRESSION: 1. No acute intra-abdominal process. 2. Incidental findings of the small right pleural effusion. ACT 112: Negative or not required by law. Electronically signed by: Philomena Mcdermott DO 05/25/2021 4:01 PM
[2021-05-25] MEDS: ACETAMINOPHEN 325 MG TAB PO PRN (17:37)
[2021-05-26] MEDS: traMADol HCL 50 MG TABLET PO PRN (04:03)
[2021-05-26] MEDS: guaiFENesin 600 MG TABCR PO SCH ×2 (04:04→17:23)
[2021-05-26 05:54] LABS: Hematocrit (blood only) 36.8 % (37-47); Hemoglobin 12.3 g/dL (12.0-16.0); Mean Corpuscular Hemoglobin 28.9 pg (25-34); Mean Corpuscular Hgb Conc 33.4 g/dL (32-36); Mean Corpuscular Volume 86.4 fL (80-100); Mean Platelet Volume 10.3 fL (7.4-10.4); Platelet Count 187 K/uL (130-400); RDW Coefficient of Variation 12.1 % (11.5-14.5); RDW Standard Deviation 38.8 fL (36.4-46.3); Red Blood Count 4.26 M/uL (4.2-5.4); White Blood Count 2.33 K/uL (4.8-10.8)
[2021-05-26 06:32] LABS: Albumin Level 2.3 gm/dl (3.4-5.0); BUN Creatinine Ratio 30.2 (10-20); Calcium 7.7 mg/dl (8.5-10.1); Creatinine Clr Calc Pharmacy 176.7 ml/min; Est GFR (African American) 148.4 ml/min; Magnesium 2.2 mg/dl (1.8-2.4)
[2021-05-26 06:43] LABS: Albumin Globulin Ratio 0.8 (0.9-2); Bilirubin,Total 0.5 mg/dl (0.2-1); C Reactive Protein 1.35 mg/dl (0-0.29); Phosphorus 3.7 mg/dl (2.5-4.9); Total Protein 5.3 gm/dl (6.4-8.2)
[2021-05-26] MEDS: dexAMETHasone 6 MG in SYRINGE 0 ML IV SCH (08:55)
[2021-05-26] MEDS: PANTOprazole 40 MG in SYRINGE 0 ML IV SCH ×2 (08:56→20:12)
[2021-05-26] MEDS: DOXYCYCLINE HYCLATE 100 MG CAP PO SCH ×2 (08:56→20:11)
[2021-05-26] MEDS: FLUTICASONE FUROATE 100MCG 14 PUFFS/INHALER INH SCH (08:57)
[2021-05-26] MEDS: ENOXAPARIN INJ 40 MG/0.4 ML SYR SQ SCH (08:58)
[2021-05-26] MEDS: LIDOCAINE 5% 1 PATCH TD SCH (11:08)
--- NOTE | 2021-05-26 11:41 | Hospitalist Progress Note ---
Date of Service May 26, 2021 Assessment & Plan (1) Pneumonia due to COVID-19 virus: Plan: Chest x-ray and CT of the chest with contrast noted dense consolidation in the left upper lobe with additional airspace opacities throughout the lung consistent with multifocal pneumonia. Patient got ceftriaxone and doxycycline in ER. Currently on doxycycline for atypical pneumonia Continue airborne precautions. Has been intermittently requiring oxygen. Wean as tolerated Continue dexamethasone LFTs still elevated. AST upto 5X ULN. Remdesivir discontinued. Monitor LFT CT abd on admission did report mild prominence of intrahepatic biliary ducts, mild CBD. RUQ USS showed no acute abnormalities in liver and gall bladder but showed small right pleural effusion Patient's pain is pleuritic in nature Continue pain management Continue supportive care with guaifenesin, antiemetics, pain meds Counselled again on self proning Incentive spirometry and flutter. Patient also had leukopenia and thrombocytopenia. This may be related to active infection. Thrombocytopenia resolved Tickborne work-up including Lyme testing and anaplasmosis smear negative. Continue to monitor blood counts There was one report of a hematemesis episode. Has not had any more since Will monitor Continue IV PPI. Hb stable Lovenox sq for DVT ppx Admission and Anticipated Discharge Date Admission Date: May 22, 2021 Subjective 35-year-old woman who presents with fever, chills, body aches, dry cough. Found to be positive for COVID-19. Being managed for pneumonia. Currently on dexamethasone and remdesivir after becoming hypoxic Patient seen and examined this morning. Reports upper abd pain especially on right side with deep breaths and movement No nausea at this time No headache or dizziness Still has cough Reports appetite and fatigue continue to improve Review of Systems Review of Systems: Other ROS negative except as above Physical Exam Constitutional: + well hydrated; no acute distress Eyes: PERRL, conjunctivae normal, anicteric sclerae ENMT: external ear and nose normal, oropharynx normal Respiratory: normal respiratory effort; no respiratory distress Auscultation: + diminished lung sounds Cardiovascular: Rate/Rhythm: regular rate and regular rhythm S1 S2 Gastrointestinal (Abdomen): normal bowel sounds, soft, nontender, no hepatosp lenomegaly Musculoskeletal: no cyanosis or clubbing, extremities motor strength 5/5 Neurologic: PERRL, EOMI, accommodation nl, no face palsy, no dysarthria Psychiatric: A+Ox3, euthymic affect Results & Data Results & Data ([facility]) Laboratory Results Abnormal lab results 05/26/21 05/26/21 Range/Units 05:37 05:37 WBC 2.33 L (4.8-10.8) K/uL Hct 36.8 L (37-47) % Creatinine 0.45 L (0.6-1.2) mg/dl BUN/Creatinine Ratio 30.2 H (10-20) Glucose 128 H (70-99) mg/dl Calcium 7.7 L (8.5-10.1) mg/dl AST 207 H (15-37) U/L ALT 180 H (12-78) U/L Alkaline Phosphatase 26 L (45-117) U/L C-Reactive Protein 1.35 H (0-0.29) mg/dl Total Protein 5.3 L (6.4-8.2) gm/dl Albumin 2.3 L (3.4-5.0) gm/dl Albumin/Globulin Ratio 0.8 L (0.9-2)
[2021-05-26] MEDS: SODIUM CHLORIDE 0.9% 10ML FLUSH IV SCH (14:05)
[2021-05-26] MEDS: MELATONIN 3 MG TAB PO PRN (22:43)
[2021-05-27] MEDS: guaiFENesin 600 MG TABCR PO SCH ×2 (05:43→17:57)
[2021-05-27] MEDS: traMADol HCL 50 MG TABLET PO PRN (05:43)
[2021-05-27 07:12] LABS: Hematocrit (blood only) 36.5 % (37-47); Hemoglobin 12.4 g/dL (12.0-16.0); Mean Corpuscular Hemoglobin 28.9 pg (25-34); Mean Corpuscular Volume 85.1 fL (80-100); Mean Platelet Volume 9.8 fL (7.4-10.4); Platelet Count 203 K/uL (130-400); RDW Standard Deviation 37.1 fL (36.4-46.3); Red Blood Count 4.29 M/uL (4.2-5.4); White Blood Count 2.92 K/uL (4.8-10.8)
[2021-05-27 07:32] LABS: Albumin Globulin Ratio 0.8 (0.9-2); Albumin Level 2.4 gm/dl (3.4-5.0); BUN Creatinine Ratio 31.9 (10-20); Bilirubin,Total 0.4 mg/dl (0.2-1); Creatinine Clr Calc Pharmacy 150.1 ml/min; Est GFR (African American) 140.6 ml/min; Est GFR (Non-African American) 121.3 ml/min; Globulin 2.9 gm/dl (2.5-4.0); Potassium 3.9 mmol/L (3.5-5.1); Total Protein 5.3 gm/dl (6.4-8.2)
[2021-05-27 07:35] LABS: Troponin I 0.029 ng/ml (0-0.045)
[2021-05-27] MEDS: dexAMETHasone 6 MG in SYRINGE 0 ML IV SCH (08:48)
[2021-05-27] MEDS: ENOXAPARIN INJ 40 MG/0.4 ML SYR SQ SCH (08:48)
[2021-05-27] MEDS: PANTOprazole 40 MG in SYRINGE 0 ML IV SCH (08:48)
[2021-05-27] MEDS: DOXYCYCLINE HYCLATE 100 MG CAP PO SCH (08:48)
[2021-05-27] MEDS: FLUTICASONE FUROATE 100MCG 14 PUFFS/INHALER INH SCH (08:49)
[2021-05-27] MEDS: LIDOCAINE 5% 1 PATCH TD SCH (08:50)
--- NOTE | 2021-05-27 10:18 | Electrocardiogram Report ---
Test Reason : Blood Pressure : / mmHG Vent. Rate : 044 BPM Atrial Rate : 044 BPM P-R Int : 132 ms QRS Dur : 090 ms QT Int : 516 ms P-R-T Axes : 053 062 034 degrees QTc Int : 441 ms Marked sinus bradycardia Minor ST elevation in muliple leads, consider early pericarditis Abnormal ECG When compared with ECG of 22-MAY-2021 12:51, Vent. rate has decreased BY [address] elevation now present in multiple leads Nonspecific T wave abnormality has replaced inverted T waves in Inferior leads T-wave inversion in Anterolateral leads no longer present Confirmed by Bob Edwards ([id number]) on 05/27/2021 10:18:04 AM Referred By: REFERRED SELF Confirmed By:Bob Edwards
[2021-05-27 11:03] LABS: D Dimer 1100 ug/L FEU (0-500)
--- NOTE | 2021-05-27 11:17 | Hospitalist Progress Note ---
Date of Service May 27, 2021 Assessment & Plan (1) Pneumonia due to COVID-19 virus: Plan: Chest x-ray and CT of the chest with contrast noted dense consolidation in the left upper lobe with additional airspace opacities throughout the lung consistent with multifocal pneumonia. Patient got ceftriaxone and doxycycline in ER. Completed doxycycline for atypical pneumonia Continue airborne precautions. Has been intermittently requiring oxygen. Wean as tolerated Continue dexamethasone DDimer continue to go up. In view of this, persistent hypoxia and symptoms, will get CT PE. Continue lovenox sq for now LFTs still elevated. Remdesivir discontinued. Continue to monitor CT abd on admission did report mild prominence of intrahepatic biliary ducts, mild CBD. RUQ USS showed no acute abnormalities in liver and gall bladder but showed small right pleural effusion Patient's pain is pleuritic in nature Continue pain management Sinus bradycardia has been reported in postmarketing side effects of remdesivir. Will continue to monitor Continue supportive care with guaifenesin, antiemetics, pain meds Counselled again on self proning Incentive spirometry and flutter. Patient also had leukopenia and thrombocytopenia. This may be related to active infection. Thrombocytopenia resolved Tickborne work-up including Lyme testing and anaplasmosis smear negative. Continue to monitor blood counts There was one report of a hematemesis episode. Has not had any more since Will monitor IV PPI changed to po Hb stable Lovenox sq for DVT ppx Admission and Anticipated Discharge Date Admission Date: May 22, 2021 Subjective 35-year-old woman who presents with fever, chills, body aches, dry cough. Found to be positive for COVID-19. Being managed for pneumonia. Currently on dexamethasone after becoming hypoxic. Remdesivir discontinued due to elevated LFT Patient seen and examined this morning. Reports persistent cough and shortness of breath Reports improvement in chest pain with deep breaths and movement Reports improved appetite. No headache Review of Systems Review of Systems: Other ROS negative except as above Physical Exam Constitutional: + well hydrated; no acute distress Eyes: PERRL, conjunctivae normal, anicteric sclerae ENMT: external ear and nose normal, oropharynx normal Respiratory: normal respiratory effort; no respiratory distress Auscultation: + diminished lung sounds Cardiovascular: Rate/Rhythm: regular rhythm and + bradycardic S1 S2 pulse was 53 b/min during my eval Gastrointestinal (Abdomen): normal bowel sounds, soft, nontender, no hepatosplenomegaly Musculoskeletal: no cyanosis or clubbing, extremities motor strength 5/5 Neurologic: PERRL, EOMI, accommodation nl, no face palsy, no dysarthria Psychiatric: A+Ox3, euthymic affect Results & Data Results & Data ([facility]) Vital Signs (Past 12 Hours) Vital Signs Temp Pulse Resp BP Pulse Ox 05/27/21 07:48 36.6 C 46 L 16 135/79 95 Laboratory Results Abnormal lab results 05/27/21 05/27/21 05/27/21 Range/Units 06:38 06:38 10:25 WBC 2.92 L (4.8-10.8) K/uL Hct 36.5 L (37-47) % D-Dimer 1100 H* (0-500) ug/L FEU Creatinine 0.53 L (0.6-1.2) mg/dl BUN/Creatinine Ratio 31.9 H (10-20) Glucose 124 H (70-99) mg/dl Calcium 8.0 L (8.5-10.1) mg/dl AST 203 H (15-37) U/L ALT 278 H (12-78) U/L Alkaline Phosphatase 35 L (45-117) U/L Total Protein 5.3 L (6.4-8.2) gm/dl Albumin 2.4 L (3.4-5.0) gm/dl Albumin/Globulin Ratio 0.8 L (0.9-2)
[2021-05-27] MEDS ORDERED: OPTIRAY 320 125ml IV ONE (12:14)
--- NOTE | 2021-05-27 13:20 | CT Scan Report ---
CT ANGIOGRAM OF THE CHEST CLINICAL HISTORY: Covid. Hypoxia. COMPARISON STUDY: Chest CT dated 05/22/2021. TECHNIQUE: Following the IV administration of 120 cc of Optiray 320, CT angiogram of the chest was pe rformed from the upper abdomen to the thoracic inlet utilizing the pulmonary embolus protocol. Images are reviewed in the axial, sagittal, and coronal planes. 3-D MIPS images are created and assessed. I V contrast was administered without complication. A dose lowering technique was utilized adhering to the principles of ALARA. CT DOSE: 398.27 mGycm FINDINGS: Thyroid: Imaged portions of the thyroid gland are normal in size and attenuation. Thoracic aorta: The thoracic aorta is normal in caliber and demonstrates 4-vessel there arch anatomy. No dissection is seen. Pulmonary vasculature: The pulmonary trunk is normal in caliber. There are no filling defects identif ied in main, lobar, or segmental pulmonary branches to suggest pulmonary embolus. Heart: The heart is normal in size and without pericardial effusion. Lungs and pleural spaces: Evaluation of the lung parenchyma is degraded by motion artifact. Multifoca l airspace consolidation is again seen throughout both lungs, most confluent throughout the left lung . This has somewhat cleared in the left upper lobe as compared to 05/22/2021 with a "crazy paving" appe arance. Consolidation is increasingly confluent at the left lung base. Airspace consolidation in the right lung has also increased from previous. There are trace pleural effusions. The trachea and centr al airways are clear. Intralobular septal thickening is noted. Mediastinum: There is no mediastinal lymphadenopathy. Klaudia: Clear. Axillae: There is no axillary lymphadenopathy. Upper abdomen: The spleen is enlarged. Trace free fluid is seen in the left upper quadrant. Skeletal structures: No lytic or blastic bony lesions are seen. IMPRESSION: 1. There is no evidence of pulmonary embolus in the main, lobar, or segmental pulmonary arteries. 2. Multifocal airspace consolidation is again seen throughout both lungs, left slightly greater than right. Although this has somewhat cleared in the left upper lobe as compared to 05/22/2021, there is in creasing airspace consolidation at the left lung base and in the right lung. The appearance remains t ypical for multifocal pneumonia and radiographic follow-up to resolution is recommended. 3. Trace pleural effusions. 4. Intralobular septal thickening is noted. Correlate clinically for evidence of fluid overload. 5. The spleen is enlarged and trace free fluid is seen in the left upper quadrant of the abdomen. ACT 112: Negative or not required by law. Electronically signed by: Bipin Banuelos M.D. 05/27/2021 1:19 PM
[2021-05-27] MEDS: SODIUM CHLORIDE 0.9% 10ML FLUSH IV SCH (14:03)
[2021-05-27] MEDS: PANTOprazole 40 MG TAB PO SCH (21:27)
[2021-05-27] MEDS: MELATONIN 3 MG TAB PO PRN (23:48)
[2021-05-28] MEDS: guaiFENesin 600 MG TABCR PO SCH ×2 (05:52→17:41)
[2021-05-28 07:20] LABS: D Dimer 1060 ug/L FEU (0-500)
[2021-05-28 07:29] LABS: Albumin Level 2.5 gm/dl (3.4-5.0); BUN Creatinine Ratio 24.6 (10-20); Calcium 7.7 mg/dl (8.5-10.1); Est GFR (African American) 138.1 ml/min; Est GFR (Non-African American) 119.1 ml/min; Magnesium 2.2 mg/dl (1.8-2.4); Potassium 3.8 mmol/L (3.5-5.1)
[2021-05-28 07:32] LABS: Albumin Globulin Ratio 0.8 (0.9-2); Bilirubin,Total 0.5 mg/dl (0.2-1); C Reactive Protein 0.52 mg/dl (0-0.29); Phosphorus 3.3 mg/dl (2.5-4.9); Total Protein 5.5 gm/dl (6.4-8.2)
[2021-05-28] MEDS: ACETAMINOPHEN 325 MG TAB PO PRN (08:21)
[2021-05-28] MEDS: dexAMETHasone 6 MG in SYRINGE 0 ML IV SCH (08:21)
[2021-05-28] MEDS: ENOXAPARIN INJ 40 MG/0.4 ML SYR SQ SCH (08:22)
[2021-05-28] MEDS: PANTOprazole 40 MG TAB PO SCH ×2 (08:22→21:51)
[2021-05-28] MEDS: LIDOCAINE 5% 1 PATCH TD SCH (08:22)
[2021-05-28] MEDS: FLUTICASONE FUROATE 100MCG 14 PUFFS/INHALER INH SCH (08:23)
[2021-05-28] MEDS: SODIUM CHLORIDE 0.9% 10ML FLUSH IV SCH (13:19)
--- NOTE | 2021-05-28 13:43 | Hospitalist Progress Note ---
Date of Service May 28, 2021 Assessment & Plan (1) Pneumonia due to COVID-19 virus: Plan: Chest x-ray and CT of the chest with contrast noted dense consolidation in the left upper lobe with additional airspace opacities throughout the lung consistent with multifocal pneumonia. Patient got ceftriaxone and doxycycline in ER. Completed doxycycline for atypical pneumonia Continue airborne precautions. Weaned off oxygen yesterday Continue dexamethasone day 5 CT PE negative DDimer mildly improved today Continue lovenox sq for now LFTs was elevated. Remdesivir discontinued after 2 doses AST trending down today 203-->166. ALT [address] abd on admission did report mild prominence of intrahepatic biliary ducts, mild CBD. RUQ USS showed no acute abnormalities in liver and gall bladder but showed small right pleural effusion Patient's pain is pleuritic in nature. Improved with lidocaine patch Sinus bradycardia has been reported in postmarketing side effects of remdesivir. However, last dose was on 05/25/21 With persistent bradycardia and nonspecific T wave changes, I am concerned for possible cardiac involvement even though patient is clinically improving and denied any chest pain. I discussed with Physical Therapy Assistant Dr Navas. Will get 2D Echo and follow up result with Physical Therapy Assistant Continue supportive care with guaifenesin, antiemetics, pain meds Will need 2 step prior to discharge Patient also had leukopenia and thrombocytopenia. This may be related to active infection. Thrombocytopenia resolved Tickborne work-up including Lyme testing and anaplasmosis smear negative. Continue to monitor blood counts There was one report of a hematemesis episode. Has not had any more since Will monitor IV PPI changed to po Hb has been stable Lovenox sq for DVT ppx Admission and Anticipated Discharge Date Admission Date: May 22, 2021 Subjective 35-year-old woman who presents with fever, chills, body aches, dry cough. Found to be positive for COVID-19. Being managed for pneumonia. Currently on dexamethasone after becoming hypoxic. Remdesivir discontinued due to elevated LFT Patient seen and examined this morning. Reports cough and shortness of breath are improving Reports significant improvement in upper abd pain and RUQ pain. Reports improvement in generalized weakness Appetite continues to improve Review of Systems Review of Systems: Other ROS negative except as above Physical Exam Constitutional: + well hydrated; no acute distress Eyes: PERRL, conjunctivae normal, anicteric sclerae ENMT: external ear and nose normal, oropharynx normal Respiratory: normal respiratory effort; no respiratory distress Auscultation: + diminished lung sounds Cardiovascular: Rate/Rhythm: regular rhythm and + bradycardic S1 S2 Gastrointestinal (Abdomen): normal bowel sounds, soft, nontender, no hepatosplenomegaly Musculoskeletal: no cyanosis or clubbing, extremities motor strength 5/5 Neurologic: PERRL, EOMI, accommodation nl, no face palsy, no dysarthria Psychiatric: A+Ox3, euthymic affect Results & Data Results & Data ([facility]) Vital Signs (Past 12 Hours) Vital Signs Temp Pulse Resp BP Pulse Ox 05/28/21 08:24 36.9 C 49 L 16 122/71 96 Laboratory Results Abnormal lab results 05/28/21 05/28/21 Range/Units 06:29 06:29 D-Dimer 1060 H* (0-500) ug/L FEU Creatinine 0.56 L (0.6-1.2) mg/dl BUN/Creatinine Ratio 24.6 H (10-20) Calcium 7.7 L (8.5-10.1) mg/dl AST 166 H (15-37) U/L ALT 274 H (12-78) U/L Alkaline Phosphatase 37 L (45-117) U/L C-Reactive Protein 0.52 H (0-0.29) mg/dl Total Protein 5.5 L (6.4-8.2) gm/dl Albumin 2.5 L (3.4-5.0) gm/dl Albumin/Globulin Ratio 0.8 L (0.9-2)
[2021-05-28] MEDS: MELATONIN 3 MG TAB PO PRN (21:52)
[2021-05-29] MEDS: guaiFENesin 600 MG TABCR PO SCH (05:42)
[2021-05-29] MEDS: ACETAMINOPHEN 325 MG TAB PO PRN (05:45)
[2021-05-29 07:32] LABS: Hemoglobin 12.3 g/dL (12.0-16.0); Mean Corpuscular Hemoglobin 28.8 pg (25-34); Mean Corpuscular Hgb Conc 34.2 g/dL (32-36); Mean Corpuscular Volume 84.3 fL (80-100); Mean Platelet Volume 9.5 fL (7.4-10.4); Platelet Count 270 K/uL (130-400); RDW Standard Deviation 36.5 fL (36.4-46.3); Red Blood Count 4.27 M/uL (4.2-5.4); White Blood Count 6.57 K/uL (4.8-10.8)
[2021-05-29 08:12] LABS: Albumin Level 2.6 gm/dl (3.4-5.0); BUN Creatinine Ratio 24.9 (10-20); Creatinine Clr Calc Pharmacy 132.6 ml/min; Est GFR (Non-African American) 116.4 ml/min; Potassium 3.6 mmol/L (3.5-5.1)
[2021-05-29 08:15] LABS: Albumin Globulin Ratio 0.9 (0.9-2); Bilirubin,Total 0.5 mg/dl (0.2-1); Total Protein 5.6 gm/dl (6.4-8.2)
[2021-05-29] MEDS: dexAMETHasone 6 MG in SYRINGE 0 ML IV SCH (09:00)
[2021-05-29] MEDS: LIDOCAINE 5% 1 PATCH TD SCH (09:00)
[2021-05-29] MEDS: PANTOprazole 40 MG TAB PO SCH (09:01)
[2021-05-29] MEDS: ENOXAPARIN INJ 40 MG/0.4 ML SYR SQ SCH (09:02)
[2021-05-29] MEDS: FLUTICASONE FUROATE 100MCG 14 PUFFS/INHALER INH SCH (09:02)
--- NOTE | 2021-05-29 12:05 | Hospitalist Progress Note ---
Date of Service May 29, 2021 Assessment & Plan (1) Pneumonia due to COVID-19 virus: Plan: Multifocal pneumonia Secondary to COVID-19 --CTA:There is no evidence of pulmonary embolus in the main, lobar, or segmental pulmonary arteries. Multifocal airspace consolidation is again seen throughout both lungs, left slightly greater than right. Although this has somewhat cleared in the left upper lobe as compared to 05/22/2021, there is increasing airspace consolidation at the left lung base and in the right lung. The appearance remains typical for multifocal pneumonia and radiographic follow-up to resolution is recommended. Trace pleural effusions. Intralobular septal thickening is noted. Correlate clinically for evidence of fluid overload. The spleen is enlarged and trace free fluid is seen in the left upper quadrant of the abdomen. -completed doxycycline for atypical pneumonia On airborne precautions. Weaned off of oxygen Continue dexamethasone day 7 On lovenox for DVT Px Remdesivir discussed continued secondary to bradycardia LFT elevation Saturating well on room air currently Sinus bradycardia Likely due to remdesivir Asymptomatic currently Remdesivir discontinued Tickborne work-up including Lyme testing and anaplasmosis smear negative. ECHO: Left ventricle is normal in size. Normal left ventricle wall thickness. Left ventricular wall motion is normal. EF 60 to 65%. No valvular disease. Doppler findings do not suggest pulmonary hypertension Prior hospitalist discussed with [employer] Dr Navas. Advised to monitor at home using pulse oximeter Advised to consider cardiology evaluation as outpatient if needed Leukopenia Thrombocytopenia Resolved As per Prior hospitalist Hematemesis episode No recurrence Continue PPI Hb Stable DVT Px: Lovenox SQ Admission and Anticipated Discharge Date Admission Date: May 22, 2021 Subjective Patient is seen and examined at bedside States feeling well today Denies chest pain, cough, dizziness, nausea, abd pain Cough much improved Eager to get discharged Review of Systems Review of Systems: All systems reviewed & are unremarkable except as noted in Subjective Physical Exam Physical Exam: Physical Exam: Vitals signs as noted above General Appearance:Moderately built and nourished, no apparent distress Head: normocephalic, Atraumatic Eyes: normal inspection, EOMI Neck: supple, Trachea midline Respiratory/Chest: Decreased breath sounds, CTA, No accessory muscle use Cardiovascular: S1, S2, No murmur, +bradycardia Abdomen/GI:Soft, Non tender, Bowel sounds present Extremities/Musculoskeletal:normal inspection, no edema Neurologic/Psych:AAOX3, grossly no focal neurological deficits Skin: normal color, warm Results & Data Results & Data ([facility]) Vital Signs (Past 12 Hours) Vital Signs Temp Pulse Resp BP Pulse Ox 05/29/21 07:50 37 C 47 L 15 127/80 97 Laboratory Results Short CBC 05/29/21 Range/Units 07:15 WBC 6.57 (4.8-10.8) K/uL Hgb 12.3 (12.0-16.0) g/dL Hct 36.0 L (37-47) % Plt Count 270 (130-400) K/uL BMP 05/29/21 07:15 Sodium 140 Potassium 3.6 Chloride 104 Carbon Dioxide 31 BUN 15 Creatinine 0.60 Glucose 92 Calcium 8.0 L Liver Function 05/29/21 Range/Units 07:15 Total Bilirubin 0.5 (0.2-1) mg/dl AST 63 H (15-37) U/L ALT 197 H (12-78) U/L Alkaline Phosphatase 36 L (45-117) U/L Albumin 2.6 L (3.4-5.0) gm/dl
--- NOTE | 2021-05-29 14:52 | Discharge Summary ---
Date of Service May 29, 2021 Admission HPI Per Admitting Provider History obtained from patient and records. No significant medical history. Last week, patient noted achy headache symptoms later followed by loss of taste and smell, fever, chills, body aches, dry cough. Not sure about COVID-19 contacts as patient had attended the [employer] [place] with her family. Patient seen at PCPs office 2 days ago. COVID-19 test was positive. Patient has not received the COVID-19 vaccine. Patient advised to isolate and drink plenty of fluids. Patient alternating Tylenol and NSAIDs for body aches. Patient started feeling worse yesterday morning. Persistent headache symptoms later associated with achy abdominal pain, nausea, hematemesis. Possible diarrhea as per patient. Poor appetite. Patient feels dehydrated. No chest pain, no S OB. Persistent dry cough symptoms. Patient consulted ER for evaluation. Ceftriaxone and Protonix administered at the ER. 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 Admission Exam Per Admitting Provider Physical Exam Physical Exam: GENERAL: uncomfortable, no respiratory distress SKIN: Normal color, warm HEENT: [place] palpebral conjunctivae, no ptosis, dry buccal mucosa NECK : Supple, no tenderness CHEST : Crackles over left lung, no tenderness HEART : RRR, no obvious murmurs ABDOMEN: Some distention, epigastric tenderness EXTREMITIES : No LE swelling/tenderness, no other conspicuous deformities noted NEUROLOGIC : Coherent, no facial asymmetry, no other gross focality Principal Diagnosis COVID-19 multifocal pneumonia Sinus bradycardia Discharge Data Allergies Allergy/AdvReac Type Severity Reaction Status Date / Time No Known Allergies Allergy Unknown Verified 05/21/21 23:40 Consultations 05/22/21 00:22 ED Decision to Admit Stat Ordered Studies 05/22/21 01:40 CT abd pelvis IV con only Urgent CT chest diagnostic w con Urgent CT head/brain wo con Urgent 05/25/21 08:05 US liver Urgent 05/27/21 11:10 CT angio chest PE protocol Stat Hospital Course (1) Pneumonia due to COVID-19 virus: Multifocal pneumonia Secondary to COVID-19 --CTA:There is no evidence of pulmonary embolus in the main, lobar, or segmental pulmonary arteries. Multifocal airspace consolidation is again seen throughout both lungs, left slightly greater than right. Although this has somewhat cleared in the left upper lobe as compared to 05/22/2021, there is increasing airspace consolidation at the left lung base and in the right lung. The appearance remains typical for multifocal pneumonia and radiographic follow-up to re solution is recommended. Trace pleural effusions. Intralobular septal thickening is noted. Correlate clinically for evidence of fluid overload. The spleen is enlarged and trace free fluid is seen in the left upper quadrant of the abdomen. -completed doxycycline for atypical pneumonia On airborne precautions. Weaned off of oxygen Continue dexamethasone day 7 On lovenox for DVT Px Remdesivir discussed continued secondary to bradycardia LFT elevation Saturating well on room air currently Sinus bradycardia Likely due to remdesivir Asymptomatic currently Remdesivir discontinued Tickborne work-up including Lyme testing and anaplasmosis smear negative. ECHO: Left ventricle is normal in size. Normal left ventricle wall thickness. Left ventricular wall motion is normal. EF 60 to 65%. No valvular disease. Doppler findings do not suggest pulmonary hypertension Prior hospitalist discussed with Editor Dr Navas. Advised to monitor at home using pulse oximeter Advised to consider cardiology evaluation as outpatient if needed Leukopenia Thrombocytopenia Resolved As per Prior hospitalist Hematemesis episode No recurrence Continue PPI Hb Stable DVT Px: Lovenox SQ Total Time Total Time Spent Total Time Spent (In Minutes): 40 minutes Discharge Plan Discharge Items Patient Disposition: Home - Self-Care Reason For Visit: COVID PNX, UGIB Discharge Diagnosis: COVID-19 multifocal pneumonia Sinus bradycardia Condition on Discharge: Fair Activity: Per Instructions section Exercise/Sports: Wait until after follow-up appointment Non-emergency contact: Primary Care Provider Call non-emergency contact if: you have any medication questions, your symptoms worsen, your pain is concerning for you and you have a fever Follow-up/Referrals: Andria Tirado DO [Outside Practitioners] - (Date & Time 06/03/2021 11:00 AM Provider Andria Tirado DO Department Family Practice [facility] PLEASE NOTE THAT THIS IS A TELEHEALTH APPOINTMENT. PLEASE FOLLOW THE INSTRUCTIONS PROVIDED IN YOUR EMAIL. IF YOU HAVE ANY QUESTIONS REGARDING THIS APPOINTMENT, PLEASE CALL .) Diet: Regular Addtl Attending Provider Instructions: -Follow up with your PCP on 06/03/2021 11:00 AM -Consider following up with your government guard if you have persistent low heart rate as advised. -Monitor your oxygen saturation levels, heart rate using a pulse oximeter as advised. -Complete the prednisone course as prescribed. Seek immediate medical attention if your symptoms reoccur or worsen Please take all medications as instructed on discharge list below. Please call if you have any questions or problems. You can reach a [facility] hospitalist on duty at [facility] 24 hours a day by calling [phone] Home Isolation COVID-19 Instructions The following information about Home Isolation is from the CDC Website: https://www.cdc.gov/coronavirus/2019-ncov/hcp/goabhttq-ytrznec-sgowoi.html Stay home except to get medical care People who are mildly ill with COVID-19 are able to isolate at home during their illness. You should restrict activities outside your home, except for getting medical care. Do not go to work, school, or public areas. Avoid using public transportation, ride-sharing, or taxis. Separate yourself from other people and animals in your home People: As much as possible, you should stay in a specific room and away from other people in your home. Also, you should use a separate bathroom, if available. Animals: You should restrict contact with pets and other animals while you are sick with COVID-19, just like you would around other people. Although there have not been reports of pets or other animals becoming sick with COVID-19, it is still recommended that people sick with COVID-19 limit contact with animals until more information is known about the virus. When possible, have another member of your household care for your animals while you are sick. If you are sick with COVID-19, avoid contact with your pet, including petting, snuggling, being kissed or licked, and sharing food. If you must care for your pet or be around animals while you are sick, wash your hands before and after you interact with pets and wear a face mask. Call ahead before visiting your doctor If you have a medical appointment, call the healthcare provider and tell them that you have or may have COVID-19. This will help the healthcare providers office take steps to keep other people from getting infected or exposed. Wear a face mask You should wear a face mask when you are around other people (e.g., sharing a room or vehicle) or pets and before you enter a healthcare providers office. If you are not able to wear a face mask (for example, because it causes trouble breathing), then people who live with you should not stay in the same room with you, or they should wear a face mask if they enter your room. Cover your coughs and sneezes Cover your mouth and nose with a tissue when you cough or sneeze. Throw used tissues in a lined trash can. Immediately wash your hands with soap and water for at least 20 seconds or, if soap and water are not available, clean your hands with an alcohol-based hand trading analyst that contains at least 60% alcohol. Clean your hands often Wash your hands often with soap and water for at least 20 seconds, especially after blowing your nose, coughing, or sneezing; going to the bathroom; and before eating or preparing food. If soap and water are not readily available, use an alcohol-based hand trading analyst with at least 60% alcohol, covering all surfaces of your hands and rubbing them together until they feel dry. Soap and water are the best option if hands are visibly dirty. Avoid touching your eyes, nose, and mouth with unwashed hands. Avoid sharing personal household items You should not share dishes, drinking glasses, cups, eating utensils, towels, or bedding with other people or pets in your home. After using these items, they should be washed thoroughly with soap and water. Clean all high-touch surfaces everyday High touch surfaces include counters, tabletops, doorknobs, bathroom fixtures, toilets, phones, keyboards, tablets, and bedside tables. Also, clean any surfaces that may have blood, stool, or body fluids on them. Use a household cleaning spray or wipe, according to the label instructions. Labels contain instructions for safe and effective use of the cleaning product including precautions you should take when applying the product, such as wearing gloves and making sure you have good ventilation during use of the product. Monitor your symptoms Seek prompt medical attention if your illness is worsening (e.g., difficulty breathing).Beforeseeking care, call your healthcare provider and tell them that you have, or are being evaluated for, COVID-19. Put on a face mask before you enter the facility. These steps will help the healthcare providers office to keep other people in the office or waiting room from getting infected or exposed. Ask your healthcare provider to call the local or state health department. Persons who are placed under active monitoring or facilitated self- monitoring should follow instructions provided by their local health department or occupational health professionals, as appropriate. When working with your local health department check their available hours. If you have a medical emergency and need to call 911, notify the dispatch personnel that you have, or are being evaluated for COVID-19. If possible, put on a face mask before emergency medical services arrive. Discontinuing home isolation Patients with confirmed COVID-19 should remain under home isolation precautions until the risk of secondary transmission to others is thought to be low. The decision to discontinue home isolation precautions should be made on a rgrp-uw-igir basis, in consultation with healthcare providers and state and intermountain healthcare health departments. Coronavirus disease 2019 (COVID-19) is a virus that causes a respiratory illness. It is caused by a coronavirus called 2019 novel coronavirus (2019- nCoV). There are many types of coronavirus. Coronaviruses are a very common cause of bronchitis. They may sometimes cause lung infection(pneumonia). Symptoms can range from mild to severe respi ratory illness. These viruses are also foundin some animals. COVID-19 was first found in people in [facility], in late 2019. In 2020, several cases of COVID- 19 have been confirmed in the [place] Public health officials are working to find the source. How the virus spreads is not yet fully known. It may be spread through droplets of fluid that a person coughs or sneezes into the air. It may be spread if you touch a surface with virus on it, such as a handle or object, and then touch your mouth. What are the symptoms of COVID-19? Some people have no symptoms or mild symptoms. Symptoms may appear 2 to 14 days after contact with the virus. Symptoms can include: Fever Coughing Trouble breathing What are possible complications from COVID-19? In many cases, this virus can cause infection (pneumonia) in both lungs. In some cases, this can cause . How is COVID-19 diagnosed? Your healthcare provider will ask about your symptoms. He or she will also ask about your recent travel and contact with sick people. Testing for the virus is only done through the CDC. If yourhealthcare provider thinks you may have COVID- 19, he or she will work with your local health department and the CDC on testing. Follow all instructions from your healthcare provider. COVID-19 is diagnosed by: Nasal and throat swab. A cotton-tipped swab is wiped inside your nose or throat. This is done to check for viruses in your nasal mucus. Sputum culture. A small sample of mucus coughed from your lungs (sputum) is collected if you have a cough. It is checked for the virus. How is COVID-19 treated? There is currently no medicine to treat the virus. Treatment is done to help your body while it fights the virus. This is known as supportive care. Supportive care may include: Pain medicine. These include acetaminophen and ibuprofen. They are used to help ease pain and reduce fever. Bed rest. This helps your body fight the illness. For severe illness, you may need to stay in the hospital. Care during severe illness may include: IV (intravenous) fluids.These are given through a vein to help keep your body hydrated. Oxygen. Supplemental oxygen or ventilation with a breathing machine (ventilator) may be given. This is done to keep enough oxygen in your body. Are you at risk for COVID-19? If youve been to a place where people have been sick with this virus, you are at risk for infection. You are at risk if you: Recently traveled to an affected area Had contact with a sick person who recently traveled to this area Had contact with a person who was diagnosed with COVID-19 How can COVID-19 be prevented? There is no vaccine yet. The best prevention is to not have contact with the virus. The CDC advises that people should not travel to areas where there are COVID-19 outbreaks right now for any reason that is not urgent. To help prevent spreading the infection, wash your hands often, or use an alcohol-basedhand trading analyst. If you are in an area with COVID-19: Wash your hands often. Or use an alcohol-based hand trading analyst often. Only touch your eyes, nose, or mouth with clean hands. Dont have contact with people who are sick. Follow local instructions about being in public. For example, you may be told to not use public transport for a period of time. Stay away from markets that have live or animals. Wash your hands after touching any animals. Don't touch animals that may be sick. Dont share eating or drinking tools with sick people. Dont kiss someone who is sick. Clean surfaces often with disinfectant. If you were in an area with COVID-19 in the last 14 days: Call your healthcare provider. He or she can talk with local health staff to see what action may be needed. Follow all instructions from your provider. Take your temperature every morning and evening for at least 14 days. This is to check for fever. Keep a record of the readings. Keep watch for symptoms of the virus. Tell your provider right away if you have symptoms. If you were in an area with COVID-19 and have a fever or other symptoms: Dont panic. Keep in mind that other illnesses can cause similar symptoms. Stay away from work, school, and public places. Limit physical contact with family members. Don't kiss anyone or share eating or drinking utensils. Clean surfaces you touch with disinfectant. This is to help prevent the virus from spreading. Call your healthcare provider. Explain that you have been exposed to COVID-19 and have symptoms. Do this before going to any hospital. Wait for instructions. Keep in mind that healthcare staff may wear protective equipment such as masks, gowns, gloves, and eye protection. You may be put in a separate room. This is to prevent the possible virus from spreading. Tell the healthcare staff about recent travel. This includes local travel on public transport. Staff may need to find other people you have been in contact with. Follow all instructions the healthcare staff give you. If you have been diagnosed with COVID-19 Follow all instructions from your healthcare provider. Dont leave your home, except to get medical care. Call your healthcare providers office before going. They can prepare and give you instructions. This will help prevent the virus from spreading. Dont go to work, school, or public areas. Dont use public transport or taxis. Stay away from other people in your home. Have them wear face masks around you. Dont share household items or food. Wear a face mask if you can. This includes at home or in a medical facility. Cover your face with a tissue when you cough or sneeze. Throw the tissue away. Wash your hands. Wash your hands often. Caregivers should: Follow all instructions from healthcare staff. Wear a face mask and protective clothing as advised. Wash hands often. Keep track of the sick persons symptoms. Clean surfaces, fabrics, and laundry thoroughly. Keep other people away from the sick person. When to call your healthcare provider Call your healthcare provider: If youve recently traveled and have symptoms If you have been diagnosed with COVID-19 and your symptoms are worse To learn more To find out more about COVID-19, visit the CDC website at www.cdc.gov/coronavirus/2019-ncov/index.html. [employer]. [address] [place] [address]. All rights reserved. This information is not intended as a substitute for professional medical care. Always follow your healthcare professional's instructions. This information has been adapted from [employer] Pending Studies at Discharge: No Stand-Alone Forms: My Meetapp, Smoking Cessation Medications and DC Order Prescriptions: New pantoprazole 40 mg Tablet,Delayed Release (Dr/Ec) 40 mg PO DAILY Qty: 15 RF: 0 prednisone 20 mg tablet 20 mg PO DAILY Qty: 4 RF: 0 No Action No Known Home Medications RF: 0 Discharge Orders: Discharge Order (Routine); Ordered 05/29/21 Ordered By: Krishan Schilling/Other Patient Handouts: COVID-19 Prevention, COVID-19 Home Care Admission Data Admit Date/Time: 05/22/21 03:14 Attending Provider: Krishan Fletcher Admit Provider: Olegario Meeks Primary Care Provider: PCP,NO Other Providers: Olegario Meeks Other Interventions: Discharge Summary Assessment (RN) Last Done: 05/29/21 13:19
== END 2021-05-29 14:35 | disposition home or self-care (01) | DRG 177 ==
LOC: ED 21:33 → SUATTDRO 05-22 03:14 → 3W 05-22 03:14